=== PATIENT | female | born 1990 | race Caucasian/White ===

== ENCOUNTER 2016-12-09 02:58 | Emergency (ER) | payer OTHER ==
--- NOTE | 2016-12-09 03:15 | EDPHY ---
H & P Stated Complaint: Ate cashew @1400, lips, tongue, throat itching HPI/ROS: HPI CHIEF COMPLAINT: Cashew Allergy HISTORY OF PRESENT ILLNESS: Patient very pleasant 26-year-old female significant past medical history for cashew allergy. 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 She states she was out eating dinner around 10:00 p.m. last night or approximately 5 and 0.5 hours ago and was exposed to catch you in a dish that she was unaware of. She felt some tongue tingling throat tingling and scratchiness some shortness of breath. She used her albuterol inhaler multiple times as well as took 75 mg of Benadryl as well as 40 mg of prednisone. She then monitor herself at home. 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 She denies any rash. She denies trouble swallowing. Denies trouble breathing. No stridor. No nausea vomiting or diarrhea. No abdominal cramps. No chest pain. She otherwise states that she feels fine. She did not give herself epinephrine. Past Medical History: Severe cashew allergy, depression Past Surgical History: No recent surgery Social History: Denies daily use drugs alcohol tobacco products. Family History: Noncontributory ROS REVIEW OF SYSTEMS: A comprehensive 10 point review of systems is otherwise negative aside from elements mentioned in the history of present illness. Exam Constitutional appears well nontoxic, no acute distress, triage nursing summary reviewed, vital signs reviewed, awake/alert. Eyes normal conjunctivae and sclera, EOMI, PERRLA. HENT oropharynx normal, no significant posterior pharynx swelling, uvula midline , no tongue swelling, no pharynx swelling, no stridor, no drooling, normal inspection, atraumatic, moist mucus membranes, no epistaxis, neck supple/ no meningismus, no raccoon eyes. Respiratory clear to auscultation bilaterally, normal breath sounds, no respiratory distress, no wheezing. Cardiovascular rate normal, regular rhythm, no murmur, no edema, distal pulses normal. Gastrointestinal soft, non-tender, no rebound, no guarding, normal bowel sounds, no distension, no pulsatile mass. Genitourinary no CVA tenderness. Musculoskeletal no midline vertebral tenderness, full range of motion, no calf swelling, no tenderness of extremities, no meningismus, good pulses, neurovascularly intact. Skin pink, warm, & dry, no rash, skin atraumatic. No urticaria Neurologic awake, alert and oriented x 3, AAOx3, moves all 4 extremities equally, motor intact, sensory intact, CN II-XII intact, normal cerebellar, normal vision, normal speech. Psychiatric normal mood/affect. Heme/Lymph/Immune no lymphadenopathy. Differential Diagnosis: Includes but is not limited to nut allergy, Acute food allergy, anaphylaxis, anaphylactic shock Medical Decision Making: Plan for this patient IV establishment IV fluid bolus , IV Pepcid 20 mg, IV Solu-Medrol 125 mg, IV Benadryl 25 mg. I do not feel that needs acute epinephrine at this time. We will closely monitor for progression of reaction. Re-evaluation: 0540AM: This patient is resting comfortably at this time. No acute distress. She has been re-evaluated she has been here in emergency room over 4 hours. There has been no return of any signs of further allergic reaction. She denies trouble swallowing, denies trouble breathing, denies rash, denies nausea vomiting. She has been breathing appropriately here. No change. Feels better after steroids fluids Benadryl. Recommend prednisone for next 3 days, Benadryl for next 3 days. New prescription for EpiPen. She currently has an epinephrine pen in her purse. She understands return emergency room if she develops any worsening signs of allergic reaction questions or concerns. She is agreeable for this. Return precautions given. Source: Patient - Personal History LMP (Females 10-55): IUD In Place Current Tetanus/Diphtheria Vaccine: Yes Current Tetanus Diphtheria and Acellular Pertussis (TDAP): Yes - Medical/Surgical History Hx Asthma: Yes Hx Chronic Respiratory Disease: No Hx Diabetes: No Hx Cardiac Disease: No Hx Renal Disease: No Hx Cirrhosis: No Hx Alcoholism: No Hx HIV/AIDS: No Hx Splenectomy or Spleen Trauma: No Other PMH: asthma, espohagitis, stomach ulcers,. appy, tonsillectomy - Social History Smoking Status: Never smoked Constitutional: Initial Vital Signs Temperature (C) 36.6 C 12/09/16 03:01 Heart Rate 78 12/09/16 03:01 Respiratory Rate 16 12/09/16 03:01 Blood Pressure 136/74 H 10/06/17 03:01 O2 Sat (%) 96 12/09/16 03:01 O2 Delivery Mode Room Air Allergies/Adverse Reactions: lansoprazole [From Prevacid] Allergy (Verified 12/09/16 03:06) Rash NUTS Allergy (Severe, Uncoded 12/25/10 19:10) Anaphylaxis CELERY/SUMMERS BEANS Allergy (Unknown, Uncoded 12/25/10 19:10) ASSUME ANAPHYLAXIS Home Medications: Medication Instructions Recorded ALBUTEROL SULFATE 01/10/10 Claritin 01/10/10 MIRENA 01/10/10 predniSONE 3 tab PO .DAILY #6 tab 12/15/12 Celexa 12/09/16 Claritin 12/09/16 Doxycycline Calcium 12/09/16 EPINEPHrine [Epipen 0.3 MG] 0.3 mg IM ONCE #2 syr 12/09/16 diphenhydrAMINE [Benadryl 25 MG 25 mg PO BID #6 tab 12/09/16 (*)] predniSONE 60 mg PO DAILY #9 tab 12/09/16 Medical Decision Making - Data Points Medications Given: Discontinued Medications Diphenhydramine HCl (Benadryl Injection) 25 mg IVP EDNOW ONE Stop: 12/09/16 03:19 Last Admin: 12/09/16 03:55 Dose: 25 mg Famotidine (Pepcid) 20 mg IVP EDNOW ONE Stop: 12/09/16 03:19 Last Admin: 12/09/16 03:55 Dose: 20 mg Sodium Chloride (Ns) 1,000 mls @ 0 mls/hr IV ONCE ONE PRN Reason: Wide Open Stop: 12/09/16 03:19 Last Admin: 12/09/16 03:54 Dose: 1,000 mls Methylprednisolone Sodium Succinate (Solu-Medrol) 125 mg IVP EDNOW ONE Stop: 12/09/16 03:19 Last Admin: 12/09/16 03:55 Dose: 125 mg Departure - Departure Disposition: Home, Routine, Self-Care Clinical Impression: Allergic reaction Qualifiers: Encounter type: initial encounter Qualified Code(s): T78.40XA - Allergy, unspecified, initial encounter Condition: Good Instructions: Food Allergy (ED), Anaphylaxis (ED), Allergies (ED) Additional Instructions: 1. Return immediately to the emergency room if he develops further signs or symptoms of worsening allergic reaction. Referrals: Huong Barrientos MD [Primary Care Provider] - As per Instructions Prescriptions: diphenhydrAMINE [Benadryl 25 MG (*)] 25 mg PO BID #6 tab EPINEPHrine [Epipen 0.3 MG] 0.3 mg IM ONCE #2 syr predniSONE 60 mg PO DAILY #9 tab
[2016-12-09] MEDS ORDERED: FAMOTIDINE 20 MG/2 ML SDV IVP ONE (03:18)
[2016-12-09] MEDS ORDERED: NS 1,000 ML IV ONE (03:18)
[2016-12-09] MEDS ORDERED: methylPREDNISolone SOD SUCC 125 MG/2 ML VIAL IVP ONE (03:18)
[2016-12-09 05:51] VITALS: BP 117/71; PULSE 73; RESP 18; TEMP 98.4; O2SAT 97
== END 2016-12-09 05:59 | disposition home or self-care (01) ==
PROC: 3E0337Z Introduction of Electrolytic and Water Balance Substance into Peripheral Vein, Percutaneous Approach (ICD-10-PCS; principal; 2016-12-09)
DX: T78.1XXA Other adverse food reactions, not elsewhere classified, initial encounter (principal); J45.909 Unspecified asthma, uncomplicated
CPT/HCPCS: 96374; J1200

== ENCOUNTER 2018-01-31 20:54 | Emergency (ER) | payer OTHER ==
--- NOTE | 2018-01-31 21:04 | EDPHY ---
H & P Time Seen by Provider: 01/31/18 21:01 HPI/ROS: CHIEF COMPLAINT: Allergic reaction, lip and tongue swelling HISTORY OF PRESENT ILLNESS: Was at a friend's house who ordered take out [employer] for dinner; patient got which she thought was a cashew at 8:30 a.m. And then started having a few minutes later swelling of her lips and tongue, trouble breathing, feeling dizzy and nausea. She took 3 Benadryl and 20 mg prednisone tablet. She has had a severe allergic reaction to nuts ever since she was 7 when she had cardiac arrest as a result. She has Never since had to use EpiPen. She stills feels like she has some swelling in her mouth and has nausea and feels little dizzy. No shortness of breath. REVIEW OF SYSTEMS: Eye: no change in vision ENT: HPI Cardiac: no chest pain or syncope Pulmonary: no cough or SOB Abdomen: No abdominal pain or vomiting Musculoskeletal: no back pain Skin: No rash or urticaria Neuro: no headache Constitutional: no fever : no urinary symptoms A comprehensive 10 point review of systems is otherwise negative aside from elements mentioned in the history of present illness. PAST MEDICAL HISTORY: Allergic reaction, asthma, appendectomy Social history: Nonsmoker General Appearance: Alert and conversant, cooperative. Eyes: No scleral icterus. ENT, Mouth: No angioedema, no stridor or drooling Respiratory: Normal respiratory effort, breath sounds equal, lungs are clear to auscultation. No wheezing. Cardiovascular: Regular rate and rhythm. Gastrointestinal: Abdomen is soft and non tender. Neurological: Alert, face symmetric, normal motor and sensory in extremities. Skin: Warm and dry, no rashes. No urticaria. Musculoskeletal: No peripheral edema. Psychiatric: Not agitated. Emergency Department course/MDM: Will treat with Zofran IV for nausea, H2 rick, additional 40 mg prednisone and observation given historical severity of reaction. 2201: Feels better, normal pharynx, no visible angioedema. Plan for another 45 min to an hour of observation. Then discharged on steroids and antihistamines. She does have an EpiPen at home. 2249: No visible angioedema, patient states she feels comfortable being discharged which I think is reasonable. Smoking Status: Never smoked Constitutional: Initial Vital Signs Temperature (C) 37.0 C 01/31/18 20:58 Heart Rate 72 01/31/18 20:58 Respiratory Rate 20 01/31/18 20:58 Blood Pressure 123/78 H 01/31/18 20:58 O2 Sat (%) 98 01/31/18 20:58 Allergies/Adverse Reactions: lansoprazole [From Prevacid] Allergy (Verified 12/09/16 03:06) Rash NUTS Allergy (Severe, Uncoded 12/25/10 19:10) Anaphylaxis CELERY/SUMMERS BEANS Allergy (Unknown, Uncoded 12/25/10 19:10) ASSUME ANAPHYLAXIS Home Medications: Medication Instructions Recorded Claritin 01/31/18 Famotidine [Pepcid] 20 mg PO BID #6 tab 01/31/18 Lutera-28 Tablet 01/31/18 Spironolactone 01/31/18 predniSONE [prednisone 20mg (RX)] 40 mg PO DAILY 4 Days tab 01/31/18 Medical Decision Making - Data Points Medications Given: Discontinued Medications Sodium Chloride (Ns) 1,000 mls @ 0 mls/hr IV EDNOW ONE; Wide Open PRN Reason: Protocol Stop: 01/31/18 21:07 Last Admin: 01/31/18 21:11 Dose: 1,000 mls Ondansetron HCl (Zofran) 4 mg IVP EDNOW ONE Stop: 01/31/18 21:07 Last Admin: 01/31/18 21:13 Dose: 4 mg Prednisone (Prednisone) 40 mg PO EDNOW ONE Stop: 01/31/18 21:07 Last Admin: 01/31/18 21:16 Dose: 40 mg Ranitidine HCl (Zantac) 50 mg IVP EDNOW ONE Stop: 01/31/18 21:07 Last Admin: 01/31/18 21:14 Dose: 50 mg Departure - Departure Disposition: Home, Routine, Self-Care Clinical Impression: Allergic reaction Qualifiers: Encounter type: initial encounter Qualified Code(s): T78.40XA - Allergy, unspecified, initial encounter Condition: Good Instructions: Food Allergy (ED), Anaphylaxis (ED) Referrals: [facility] ,. [Edm Groups for Call Sched] - As per Instructions Prescriptions: Famotidine [Pepcid] 20 mg PO BID #6 tab predniSONE [prednisone 20mg (RX)] 40 mg PO DAILY 4 Days tab
[2018-01-31] MEDS ORDERED: NS 1,000 ML IV ONE (21:06)
[2018-01-31] MEDS ORDERED: ONDANSETRON 4 MG/2 ML VIAL IVP ONE (21:06)
[2018-01-31] MEDS ORDERED: RANITIDINE 50 MG/2 ML VIAL IVP ONE (21:06)
[2018-01-31] MEDS ORDERED: predniSONE 20 MG TAB PO ONE (21:06)
[2018-01-31 22:59] VITALS: BP 112/87
== END 2018-01-31 22:58 | disposition home or self-care (01) ==
DX: T78.05XA Anaphylactic reaction due to tree nuts and seeds, initial encounter (principal); E86.9 Volume depletion, unspecified
CPT/HCPCS: 96374; J2405; J2780; J7512